=== PATIENT | female | born 1990 | race Caucasian/White ===

== ENCOUNTER 2018-09-16 16:15 | Inpatient (IN) ==
[2018-09-16] MEDS ORDERED: RINGER'S SOLUTION,LACTATED 1,000 ML IV ONE (16:21)
[2018-09-16] MEDS ORDERED: ONDANSETRON 4 MG TAB.RAPDIS PO PRN (16:21)
[2018-09-16] MEDS ORDERED: DEXTROSE 5%-LACTATED RINGERS 1,000 ML IV PRN (16:21)
[2018-09-16] MEDS ORDERED: OXYTOCIN/DEXTROSE 5%-WATER 30 UNITS/500 ML BAG IV ONE ×2 (16:21→23:38)
[2018-09-16 16:56] LABS: Cocaine Ur Negative (NEGATIVE); Urine Barbiturate Negative (NEGATIVE); Urine Benzodiazepines Negative (NEGATIVE); Urine Opiates Negative (NEGATIVE); Urine PCP Negative (NEGATIVE); Urine THC Negative (NEGATIVE)
[2018-09-16] MEDS ORDERED: ONDANSETRON HCL/PF 2 MG/ML VIAL IV PRN (18:31)
[2018-09-16] MEDS ORDERED: NALOXONE HCL 1 MG/1 ML SYRG IV PRN (18:31)
[2018-09-16] MEDS ORDERED: BUPIVACAINE HCL/0.9 % NACL/PF 250 ML EP PRN (18:31)
[2018-09-16] MEDS ORDERED: LIDOCAINE HCL/EPINEPHRINE 20 ML VIAL IJ ONE (18:35)
[2018-09-16] MEDS ORDERED: fentaNYL CITRATE/PF 50 MCG/ML AMPUL IT SCH (18:45)
[2018-09-16] MEDS ORDERED: LIDOCAINE HCL/EPINEPHRINE 20 ML VIAL ONE (18:59)
--- NOTE | 2018-09-16 19:01 | ANES ---
Anesthesia Pre Procedure Eval Vitals/Labs: Last Vital Signs Temp 36.8 C 09/16/18 16:52 Pulse 85 09/16/18 16:52 Resp 18 09/16/18 16:52 BP 113/75 09/16/18 16:52 Pulse Ox 98 09/16/18 16:52 HOME MEDICATIONS Ferrous Sulfate [Iron] 325 mg PO DAILY 09/16/18 [Last Taken Unknown] Vits96/Iron Fum/Folic [ S] 1 tab PO DAILY 09/16/18 [Last Taken Unknown] magnesium oxide 500 mg capsule 500 mg PO DAILY 09/16/18 [Last Taken Unknown] Allergies/Adverse Reactions: Allergies Allergy/AdvReac Type Severity Reaction Status Date / Time grass pollen Allergy Rash Verified 09/16/18 16:30 No Known Drug Allergies Allergy Verified 09/16/18 16:30 - Planned Procedure Planned Procedure: ACTIVE LABOR Medication List Reviewed:: Yes Allergies Verified: Yes Medical History (Updated 05/18/18 @ 16:56 by Bairon Gardiner DO) Anemia Onset Date: 07/17/15 w/ Asthma Onset Date: ~2003 No hospitalizations, No current medication. Last asthma attack was approx. 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/07/16 LGSIL- DIPAK II Hx of migraines Onset Date: ~2015 Tattoo UTI (urinary tract infection) [place] teeth extracted Surgical History (Updated 01/22/18 @ 15:54 by Jenae Shaver RN) H/O LEEP Onset Date: 01/14/17 DIPAK II History of colposcopy Onset Date: 12/16/16 DIPAK II History of tonsillectomy and adenoidectomy Onset Date: ~1998 Family History (Updated 02/22/18 @ 13:48 by Yazan Bailey RN) Aunt Hypothyroidism maternal Mother Hypothyroidism Grandmother Hypothyroidism Maternal Grandfather Prostate cancer Maternal Sister Hypothyroidism - Family Anesthesia History Family History:: no untoward family reactions to anesthesia, no familial bleeding tendencies, no family history of clotting disorders, no family history of premature - Airway/Neck/Teeth Within Normal Limits:: Yes Teeth Condition: intact Neck Exam: full range of motion Mallampatti Score: 2 Thyromental (T-M) distance: > 6 cm Mandibulo Hyoid distance: > 3 cm - Respiratory Respiratory Physical: lungs clear Smoking Status: Never smoker Sleep Apnea currently treated: No Sleep Apnea by current assessment: No - Cardiovascular Tolerate Activity: Good Heart Sounds: S1 & S2, Regular - Anesthesia Assessment and Plan ASA Class: PS, II, E Anesthesia Type Plan: Local - labor epidural for analgesia
--- NOTE | 2018-09-16 19:19 | ANES ---
Anesthesia Procedure Note Procedure Note: ANESTHESIA PROCEDURE NOTE Date of Procedure: 09/16/2018 Time of procedure: 1900. Performed by: Mukesh Castaneda CRNA, MSN Director Of Donor Relations: Suzan Valerio RN. Preprocedure diagnosis: Active labor, labor pain. Post procedure diagnosis: Same. Procedure:Epidural for labor analgesia L3 4. Indications: Labor pain. Findings: See below. Details of the procedure: The patient was placed on the side of the bed in sitting positionand prepped with DuraPrep then draped in a sterile fashion. Lidocaine 1% was infiltrated to the skin and subcutaneous tissues at the level of the L3 4 interspace. An 18-gauge Touhy needle was used to approach the epidural space with loss of resistance technique. Once loss of resistance was achieved a 27-gauge spinal needle was passed through the epidural needle and CSF was contacted. After CSF returned, 20 mcg of fentanyl was injected in the spinal needle was removed the epidural catheter was then threaded approximately 4 cm in the epidural needle was removed. The catheter was taped in place and after careful aspiration 3 mL of 2% lidocaine with 1-200,000 epinephrine was injected without change in maternal heart rate or sensorium. . EBL: Minimal. Fluids: N/A. Specimen: N/A. Post procedure condition: The patient tolerated the procedure well with good relief. No complications were noted. Thank you for this consultation. Mukesh Castaneda CRNA, MSN
--- NOTE | 2018-09-16 19:19 | ANES ---
Post Anesthesia Discharge - Transfer of Care Transfer of Care handoff given to nurse: Yes - Discharge from PACU Discharge from PACU when meets criteria: Yes - Comfortable after CSE.
--- NOTE | 2018-09-16 19:20 | HP ---
Chief Complaint - Chief Complaint Date of Service: 09/16/18 Time of Service: 19:09 Chief Complaint: elective induction of labor History of Present Illness: 28 yo G2 P 1 at 39 2/7 weeks presents to L&D from office for elective induction of labor. Patient was dilated to 4/60/-2 in the office today and was sent to L&D for induction of labor since she [place] [address] [place] hospital and had a fast labor with her first child. This complicated by anemia, asthma, migraines, and h/o LEEP. Rh positive Rubella immune GBS negative Medical History (Updated 05/18/18 @ 16:56 by Bairon Gardiner DO) Anemia Onset Date: 07/17/15 w/ Asthma Onset Date: ~2003 No hospitalizations, No current medication. Last asthma attack was approx. 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/07/16 LGSIL- DIPAK II Hx of migraines Onset Date: ~2015 Tattoo UTI (urinary tract infection) [place] teeth extracted Surgical History: Surgical History (Updated 01/22/18 @ 15:54 by Jenae Shaver RN) H/O LEEP Onset Date: 01/14/17 DIPAK II History of colposcopy Onset Date: 12/16/16 DIPAK II History of tonsillectomy and adenoidectomy Onset Date: ~1998 Family History: Family History (Updated 02/22/18 @ 13:48 by Yazan Bailey RN) Aunt Hypothyroidism maternal Mother Hypothyroidism Grandmother Hypothyroidism Maternal Grandfather Prostate cancer Maternal Sister Hypothyroidism Social History: Preferred Language Samoan Smoking Status Never smoker Abuse History No History of abuse Psych History No pertinent hx (Last Updated 09/16/18 @ 16:15 by Bairon Gardiner DO) No Social History Section defined Review Of Systems (GEN) - Review of Systems Generalized/Overall Review: Present: No Symptoms Reported EENTM: Present: No Symptoms Reported Respiratory: Present: No Symptoms Reported Cardiac: Present: No Symptoms Reported Abdominal: Present: No Symptoms Reported Genitourinary: Present: No Symptoms Reported Musculoskeletal: Present: No Symptoms Reported Neurological: Present: No Symptoms Reported Skin: Present: No Symptoms Reported Endocrine: Present: No Symptoms Reported Immunizations: IMMUNIZATION HX History of Influenza Vaccine Yes Hx Pneumococcal Vaccination No Allergies/Adverse Reactions: Allergies Allergy/AdvReac Type Severity Reaction Status Date / Time grass pollen Allergy Rash Verified 09/16/18 16:30 No Known Drug Allergies Allergy Verified 09/16/18 16:30 Home Medications: HOME MEDICATIONS Ferrous Sulfate [Iron] 325 mg PO DAILY 09/16/18 [Last Taken Unknown] Vits96/Iron Fum/Folic [ S] 1 tab PO DAILY 09/16/18 [Last Taken Unknown] magnesium oxide 500 mg capsule 500 mg PO DAILY 09/16/18 [Last Taken Unknown] Exam - Exam Vital Signs: Vital Signs - Last Taken Temp 36.8 C 09/16/18 16:52 Pulse 85 09/16/18 16:52 Resp 18 09/16/18 16:52 BP 113/75 09/16/18 16:52 Pulse Ox 98 09/16/18 16:52 Constitutional: Present: Alert, Oriented x3, Cooperative, No distress ENT Exam: Present: hearing grossly normal Neck: Absent: thyromegaly Breasts: Present: Exam deferred Respiratory: Present: lungs clear, no respiratory distress Cardiovascular/Chest: Present: regular rate, rhythm, no edema Abdomen: Present: soft, nontender, no rebound tenderness, other - gravid. Absent: guarding /Rectal: Present: Other - cervix - 4/60/-2 Extremity: Present: no pedal edema, no calf tenderness Skin Exam: Present: normal color, warm/dry, no cyanosis Neurologic: Present: alert, normal mood/affect, oriented x 3 Appearance: Present: appropriate appearance, appropriate insight Eye contact: Present: cooperative, good eye contact, normal speech Thoughts: Present: normal thought pattern Diagnostic Studies: Laboratory Results Negative (NEGATIVE) 09/16/18 16:30 Negative (NEGATIVE) 09/16/18 16:30 Ur Phencyclidine Scrn Negative (NEGATIVE) 09/16/18 16:30 Urine Amphetamine Negative (NEGATIVE) 09/16/18 16:30 U Benzodiazepines Scrn Negative (NEGATIVE) 09/16/18 16:30 Negative (NEGATIVE) 09/16/18 16:30 Negative (NEGATIVE) 09/16/18 16:30 Assessment/Plan - Assessment/Plan (1) Encounter for induction of labor Assessment: Admit for pitocin and AROM. Epidural PRN. Problem: Acute (2) Anemia Problem: Acute Qualifiers: Anemia type: iron deficiency Iron deficiency anemia type: inadequate dietary iron intake Qualified Code(s): D50.8 - Other iron deficiency anemias (3) Asthma Problem: Acute (4) Hx of migraines Problem: Acute
--- NOTE | 2018-09-16 21:37 | ANES ---
Post Anesthesia Assessment - Vital Signs Vitals: Last Vital Signs Temp 36.8 C 09/16/18 16:52 Pulse 85 09/16/18 16:52 Resp 18 09/16/18 16:52 BP 113/75 09/16/18 16:52 Pulse Ox 98 09/16/18 16:52 Airway Patency: Normal - Mental Status Level Of Consciousness: Awake, Alert, Appropriate - Pain Level Pain Score: 0 - N/V Assessment Nausea/Vomiting Presence: None Dehydration:: No
--- NOTE | 2018-09-16 23:36 | OR ---
Operative Report - Dictated Report Narrative: Spontaneous vaginal delivery of viable female at 2314 on 09/16/2018 with Apgars 7 and 9, weighing 3214 g in MARKIE position with nuchal cord 1 Cord clamping delayed approximately 1 minute Placenta delivered complete, intact, with three vessel cord Estimated blood loss: less than 50 ml Anesthesia: epidural Lacerations: Mild periurethral abrasions - no repair needed.
[2018-09-16] MEDS ORDERED: HYDROCORTISONE 30 APPL TUBE TP PRN (23:38)
[2018-09-16] MEDS ORDERED: SENNOSIDES 8.6 MG TABLET PO PRN (23:38)
[2018-09-16] MEDS ORDERED: GLYCERIN/WITCH HAZEL LEAF 40 APPL BOX TP PRN (23:38)
[2018-09-16] MEDS ORDERED: BENZOCAINE/MENTHOL 81 SPRAY CAN TP PRN (23:38)
[2018-09-16] MEDS ORDERED: oxyCODONE HCL/ACETAMINOPHEN 1 TAB TABLET PO PRN ×2 (23:38)
[2018-09-16] MEDS ORDERED: BISACODYL 10 MG SUPP.RECT RC PRN (23:38)
[2018-09-17] MEDS: IBUPROFEN 800 MG TABLET PO PRN ×3 (01:26→17:47)
[2018-09-17] MEDS: MAGNESIUM OXIDE 400 MG TABLET PO SCH (09:48)
[2018-09-17] MEDS: DOCUSATE SODIUM 100 MG CAPSULE PO SCH (09:48)
[2018-09-17] MEDS: FERROUS SULFATE 325 MG TABLET PO SCH (09:48)
[2018-09-17] MEDS: PRENATAL VITS96/IRON FUM/FOLIC 1 TAB TABLET PO SCH (09:48)
[2018-09-18] MEDS: IBUPROFEN 800 MG TABLET PO PRN (07:09)
[2018-09-18] MEDS: DOCUSATE SODIUM 100 MG CAPSULE PO SCH ×2 (09:57→09:58)
[2018-09-18] MEDS: FERROUS SULFATE 325 MG TABLET PO SCH (09:58)
[2018-09-18] MEDS: MAGNESIUM OXIDE 400 MG TABLET PO SCH (09:58)
[2018-09-18] MEDS: PRENATAL VITS96/IRON FUM/FOLIC 1 TAB TABLET PO SCH (09:58)
[2018-09-18 11:03] VITALS: BP 111/71
--- NOTE | 2018-09-18 12:32 | PN ---
Subjective - Date and Time Seen Date: 09/18/18 Time: 12:32 Objective - Vitals Vitals: Last Vital Signs Temp 36.8 C 09/18/18 07:00 Pulse 81 09/18/18 07:00 Resp 18 09/18/18 07:00 BP 111/71 09/18/18 07:00 Pulse Ox 98 09/18/18 07:00 Patient denies complaints. Lochia wnl Abdomen - soft, nontender Uterus - firm, at umbilicus - 2 No calf tenderness Impression: day #2 - s/p spontaneous vaginal delivery. Plan: Routine discharge instructions Cauti Physician Documentation - Urinary Catheter Management Urethral ([place]) Date of Insertion: 09/16/18 Time of Insertion: 19:32 Date of Removal: 09/16/18 Time of Removal: 23:10 Assessment/Plan - Problems/Diagnosis (1) Encounter for induction of labor Problem: Acute (2) Anemia Problem: Acute Qualifiers: Anemia type: iron deficiency Iron deficiency anemia type: inadequate dietary iron intake Qualified Code(s): D50.8 - Other iron deficiency anemias (3) Asthma Problem: Acute (4) Hx of migraines Problem: Acute
== END 2018-09-18 13:45 | disposition home or self-care (01) | DRG 807 ==
LOC: OB 16:15
PROVIDERS: ADMIT Obstetrics & Gynecology; ATTEND Obstetrics & Gynecology
CPT/HCPCS: 59025; 80307